=== PATIENT | female | born 1980 | race Caucasian/White ===

== ENCOUNTER 2018-06-19 18:57 | Emergency (ER) | payer BC ==
[~2018-06-19] VITALS: Ht 165.1 cm; Wt 104.5 kg
[2018-06-19 19:52] LABS: EOS # 0.6 (0.04-0.40); EOS % 5.2 % (1.0-5.0); HEMATOCRIT 38.3 % (37.0-47.0); HEMOGLOBIN 12.8 g/dL (12.5-16.0); LYMPH# 2.3 (1.50-4.00); MEAN CELL VOLUME 87 fl (78-100); MEAN CORPUSCULAR HEMOGLOBIN 29 pg (27-31); MEAN CORPUSCULAR HGB CONC 33 g/dL (33-37); MONO # 0.9 (0.20-0.80); NEU # 8.3 (1.40-6.50); PLATELET COUNT 386 K/mm3 (130-400); RED BLOOD COUNT 4.42 M/mm3 (4.10-5.30); RED CELL DISTRIBUTION WIDTH 13.4 % (11.5-14.5); WHITE BLOOD COUNT 12.2 K/mm3 (4.8-10.8)
[2018-06-19 20:00] LABS: URINE APPEARANCE HAZY; URINE COLOR YELLOW; URINE GLUCOSE NEGATIVE (NEGATIVE); URINE PROTEIN(semi-quant) NEGATIVE (NEGATIVE)
[2018-06-19 20:01] LABS: ALBUMIN 4.2 g/dL (3.5-5.0); CALCIUM 9.2 mg/dL (8.4-10.2); POTASSIUM 3.8 mmol/L (3.6-5.0); TOTAL BILIRUBIN 0.5 mg/dL (0.2-1.3); TOTAL PROTEIN 7.4 g/dL (6.3-8.2)
[2018-06-19 20:01] LABS: URINE BILIRUBIN NEGATIVE (NEGATIVE); URINE BLOOD 50 ery/uL (NEGATIVE); URINE KETONE NEGATIVE (NEGATIVE); URINE LEUKOCYTE ESTERASE NEGATIVE (NEGATIVE); URINE NITRATE NEGATIVE (NEGATIVE); URINE UROBILINOGEN NORMAL (NORMAL); URINE WBC 0-1 /hpf (0-3)
[2018-06-19 20:31] LABS: LIPASE 98 U/L (23-300)
[2018-06-19 23:06] VITALS: BP 134/72
== END 2018-06-19 23:06 | disposition short-term general hospital (02) ==
LOC: ED 18:57
PROVIDERS: Family Medicine
DX: K37 Unspecified appendicitis (principal)
CPT/HCPCS: J1885; J2270

== ENCOUNTER → 2024-11-10 | Outpatient (CLI) | payer BC ==
[~2024-11-10] MED LIST: Iohexol 300 - 100 ML VIAL IV ONE; NS 100 ML IV SCH; ZYRTEC ALLERGY10 MG PO
[2024-11-10 14:14] LABS: ALBUMIN 4.2 g/dL (3.5-5.0); BASO # 0.05 K/mm3 (0.02-0.10); EOS # 0.32 K/mm3 (0.04-0.40); HEMATOCRIT 41.6 % (37.0-47.0); HEMOGLOBIN 13.5 g/dL (12.5-16.0); LYMPH# 2.17 K/mm3 (1.50-4.00); MEAN CELL VOLUME 95 fl (78-100); MEAN CORPUSCULAR HEMOGLOBIN 31 pg (27-31); MEAN CORPUSCULAR HGB CONC 33 g/dL (33-37); MONO # 0.44 K/mm3 (0.20-0.80); NEU # 3.37 K/mm3 (1.40-6.50); PLATELET COUNT 260 K/mm3 (130-400); RED BLOOD COUNT 4.38 M/mm3 (4.10-5.30); RED CELL DISTRIBUTION WIDTH 12.1 % (11.5-14.5); WHITE BLOOD COUNT 6.4 K/mm3 (4.8-10.8)
[2024-11-10 14:15] LABS: CALCIUM 9.5 mg/dL (8.3-10.5)
[2024-11-10 14:16] LABS: TOTAL PROTEIN 7.5 g/dL (6.4-8.3)
[2024-11-10 14:18] LABS: TOTAL BILIRUBIN 0.5 mg/dL (0.2-1.2)
== END ==
LOC: LAB 13:14
DX: R10.32 Left lower quadrant pain (principal)
CPT/HCPCS: Q9967